=== PATIENT | male | born 1960 | race Caucasian/White ===

== ENCOUNTER 2017-05-23 14:22 | Emergency (ER) | payer MEDICARE, MEDICAID ==
[~2017-05-23] VITALS: Ht 188 cm; Wt 86.2 kg
[2017-05-23 15:22] VITALS: BP 127/75
[2017-05-23] MEDS ORDERED: cefTRIAXone SOD 1,000 MG VL IM ONE (15:45)
[2017-05-23] MEDS ORDERED: HYDROcodone-ACET 10/325MG TAB PO ONE (15:45)
[2017-05-23] MEDS ORDERED: KETOROLAC TROMETH 60MG/2ML VIAL IM ONE (15:45)
== END 2017-05-23 16:34 | disposition home or self-care (01) ==
LOC: ER 14:27
DX: J34.0 Abscess, furuncle and carbuncle of nose (principal)
CPT/HCPCS: 10060; 96372; 99284; J0696; J1885

== ENCOUNTER 2018-09-29 12:27 | Emergency (ER) | payer MEDICAID ==
[~2018-09-29] VITALS: Ht 188 cm; Wt 90.7 kg
[2018-09-29 12:41] VITALS: BP 129/90
== END 2018-09-29 14:21 | disposition home or self-care (01) ==
LOC: ER 12:27
DX: L03.116 Cellulitis of left lower limb (principal); F17.210 Nicotine dependence, cigarettes, uncomplicated

== ENCOUNTER 2023-12-10 05:23 | Inpatient (IN) | payer MEDICARE, MEDICAID ==
[~2023-12-10] VITALS: Ht 188 cm; Wt 94.0 kg
[2023-12-10 07:41] LABS: Basophils # (auto) 0 10 ^3/uL (0-0.2); Basophils % (auto) 0.6 % (0.0-2.0); Eosinophils # (auto) 0.1 10 ^3/uL (0-0.8); Eosinophils % (auto) 1.8 % (0.0-7.0); Hematocrit 51.5 % (41.0-53.0); Hemoglobin 17.2 g/dL (13.5-17.5); Lymphocytes # (auto) 1.6 10 ^3/uL (0.4-5.4); Lymphocytes % (auto) 22.9 % (10.0-50.0); Mean Corpuscular Hemoglobin 30.5 pg (28.0-32.0); Mean Corpuscular Hgb Conc. 33.4 g/dL (32.0-36.0); Mean Corpuscular Volume 91.3 fL (80.0-100.0); Monocytes # (auto) 0.7 10 ^3/uL (0-1.3); Monocytes % (auto) 10.2 % (0.0-12.0); Neutrophils # (auto) 4.6 10 ^3/uL (1.6-8.6); Neutrophils % (auto) 64.5 % (37.0-80.0); Nucleated Red Blood Cells % 0.1 %; Red Blood Cells 5.64 10^6/uL (4.5-5.90); Red Cell Distribution Width 13.7 % (11.8-14.3); White Blood Cell 7.1 10^3/uL (4.4-10.8)
[2023-12-10 08:00] LABS: Alanine Aminotransferase 24 U/L (7-40); Albumin 4.7 g/dL (3.2-4.8); Alkaline Phosphatase 61 U/L (46-116); Anion Gap 7 (5-15); Aspartate Aminotransferase 24 U/L (13-40); BUN/Creatinine Ratio 6.1 (10.0-20.0); Bilirubin, Total 1.2 mg/dL (0.2-1.0); Blood Urea Nitrogen 7 mg/dL (9-23); Calcium 9.3 mg/dL (8.5-10.1); Carbon Dioxide 23 mmol/L (20-30); Chloride 107 mmol/L (98-107); Glucose 96 mg/dL (74-106); Potassium 4.2 mmol/L (3.5-5.1); Sodium 137 mmol/L (136-145); Total Protein 7.4 g/dL (5.7-8.2)
[2023-12-10] MEDS: SODIUM CHLORIDE 0.9% 1,000 ML IV ONE (08:01)
[2023-12-10 10:45] VITALS: PULSE 78; RESP 13; O2SAT 95
[2023-12-10 11:03] LABS: Urine Bacteria None Seen /hpf (None Seen)
[2023-12-10 11:12] LABS: Urine Blood Negative /uL (Negative); Urine Clarity Clear (Clear); Urine Color Yellow (Yellow); Urine Mucus FEW (None Seen); Urine Protein, UAD TRACE (Negative); Urine Specific Gravity 1.027 (1.001-1.035); Urine Urobilinogen Normal (Negative); Urine WBC 1 /hpf (0 - 3); Urine pH 5.5 (5.0-9.0)
[2023-12-10] MEDS ORDERED: LORazepam 2MG/ML-1ML VIAL IV PRN (17:45)
[2023-12-10 18:25] LABS: Folate (Folic Acid) 22.17 ng/mL (>5.38); Free T4 (Free Thyroxine) 1.08 ng/dL (0.89-1.76)
[2023-12-10 18:51] LABS: Amphetamine Screen, Urine Neg (NEGATIVE); Barbiturate Scree,Urine Neg (NEGATIVE); Benzodiazephine Screen, Urine Neg (NEGATIVE)
[2023-12-10 18:52] LABS: Cannabinoid Screen, Urine Pos (NEGATIVE); Cocaine Screen, Urine Neg (NEGATIVE); Opiate Scree,Urine Neg (NEGATIVE); Phencyclidine Screen, Urine Neg (NEGATIVE)
[2023-12-10 21:00] VITALS: PULSE 82; RESP 16; O2SAT 96
[2023-12-10] MEDS: ATORVASTATIN 20 MG TAB PO SCH (22:13)
[2023-12-11 00:35] VITALS: PULSE 65; RESP 19
[2023-12-11 06:06] LABS: RPR Non Reactive (Non Reactive)
[2023-12-11 08:00] VITALS: PULSE 63
[2023-12-11 09:19] VITALS: BP 122/82; PULSE 74; RESP 20; TEMP 97.8; O2SAT 95
[2023-12-11] MEDS: ASPirin 81 mg TAB PO SCH (10:14)
[2023-12-11] MEDS ORDERED: MECL25CH85 PO (10:42)
[2023-12-11 12:31] VITALS: BP 119/70; PULSE 65; RESP 17; TEMP 98.7; O2SAT 95
[2023-12-11 13:23] VITALS: BP 119/70; PULSE 65; RESP 20; TEMP 98.7; O2SAT 95
== END 2023-12-11 15:14 | disposition home or self-care (01) | DRG 149 ==
LOC: ER 05:23 → TELE 12:36 → TELE-WESTW 22:39
PROVIDERS: ADMIT Family Medicine; ATTEND Family Medicine
DX: H81.10 Benign paroxysmal vertigo, unspecified ear (principal); F12.10 Cannabis abuse, uncomplicated; F17.210 Nicotine dependence, cigarettes, uncomplicated; G62.9 Polyneuropathy, unspecified; K52.9 Noninfective gastroenteritis and colitis, unspecified; N40.1 Benign prostatic hyperplasia with lower urinary tract symptoms; Z81.8 Family history of other mental and behavioral disorders; Z82.0 Family history of epilepsy and other diseases of the nervous system; Z90.49 Acquired absence of other specified parts of digestive tract
CPT/HCPCS: 36415; 70450; 70545; 70551; 80053; 80307; 81001; 82607; 82746; 83036; 84439; 84443; 84484; 85025; 86592; 93005; 96360; 96361; 97163; G0378